=== PATIENT | female | born 1945 | race Two or more races ===

== ENCOUNTER 2017-04-18 00:08 | Emergency (ER) | payer MEDICARE, MEDICAID ==
[~2017-04-18] VITALS: Ht 157.5 cm; Wt 72.1 kg
[2017-04-18 00:08] VITALS: BP 106/64
--- NOTE | 2017-04-18 00:54 | Emergency Room Report ---
History of Present Illness General Chief Complaint: Chest Pain Source: Patient Present Illness HPI [id number] BIBEMS with 1 hour of chest pressure substernal non-radiating. No assoc nausea/vomiting/ sweating or SOB Was given ASA and nitro by EMS Takes daily ASA and Plavix Took Lasix here Had ECHO 2 months ago. States "blood flows backward in my heart." Doesnt know her EF. Previous CABG, stents. Allergies: Coded Allergies: ACETAMINOPHEN (Verified Allergy, Unknown, 04/17/17) MAGNESIUM (Verified Allergy, Unknown, 04/17/17) NSAIDS (NON-STEROIDAL ANTI-INFLAMMA (Verified Allergy, Unknown, 04/17/17) Patient History Past Medical History: HTN, CAD, CHF Past Surgical History: CABG Pertinent Family History: none Social History: Denies: alcohol use, drug use, smoking Now: No Immunizations: UTD Reviewed Nursing Documentation: PMH: Agreed, PSxH: Agreed Nursing Documentation-PMH Past Medical History: No History, Except For Hx Cardiac Problems: Yes - CHF, kidney stones Review of Systems All Other Systems: negative except mentioned in HPI Physical Exam Vital Signs Date Time Temp Pulse Resp B/P Pulse Ox O2 Delivery O2 Flow Rate FiO2 04/17/17 23:52 91 18 106/64 100 Room Air Sp02 EP Interpretation: reviewed, normal General Appearance: normal inspection, well appearing, no apparent distress, alert, GCS 15, non-toxic Head: normocephalic, atraumatic Eyes: bilateral eye EOMI, bilateral eye PERRL ENT: normal ENT inspection Neck: normal inspection, full range of motion, supple, no bony tend Respiratory: normal inspection, lungs clear, normal breath sounds, no respiratory distress, no retraction, no accessory muscle use, no wheezing, speaking full sentences Cardiovascular #1: regular rate, rhythm, no edema Gastrointestinal: normal inspection, normal bowel sounds, non tender, soft, no guarding, no hernia Genitourinary: no CVA tenderness Musculoskeletal: normal inspection, back normal, normal range of motion, Saskia' s Sign negative Neurologic: normal inspection, alert, oriented x3, responsive, lead recreation assistant III-XII nml as tested, motor strength/tone normal, speech normal Psychiatric: normal inspection, judgement/insight normal, mood/affect normal Skin: normal inspection, normal color, no rash Medical Decision Making Diagnostic Impression: Primary Impression: Chest pain Qualified Codes: R07.9 - Chest pain, unspecified ER Course - VSS. Afebrile. - ECG with TWI in anterior leads - no previous to compare - Labs: Patient repeatedly preventing multiple nurses to place tourniquet, attempt IV access, or draw blood for lab testing. Every vein found by nurses is not allowed per patient. - CRX: Cardiomegaly. No chf. No PTX. Sternotomy wires seen Given continued patient disruption of my staff's ability to draw blood for laboratory testing and enable me to evaluate her for risk of ACS including lab testing, administration of IV medication, or possibly admission I have no other choice but to discharge patient home with recommended PMD follwoup. On serial exam, patient's vitals remain stable. She is no acute distress. Given O2 sat 100%, no audible crackels on auscultation of lungs, unlikely to be in acute on chronic CHF. EKG Diagnostic Results Rate: normal, other - 1st degree block ST Segments: other - RBBB. TWI in leads V1-6; Q wave in Lead 3 ASA given to the pt in ED: No Rhythm Strip Diag. Results EP Interpretation: yes Rate: 83 Rhythm: NSR, no PVC's, no ectopy Chest X-Ray Diagnostic Results Chest X-Ray Diagnostic Results : Chest X-Ray Ordered: Yes # of Views/Limited/Complete: 1 View Indication: Chest Pain EP Interpretation: Yes Interpretation: no consolidation, no effusion, no pneumothorax, other - Cardiomegaly. Sternotomy wires Impression: No acute disease Interpreting ER Provider: Electronicaly signed by Dr Maurice Last Vital Signs Date Time Temp Pulse Resp B/P Pulse Ox O2 Delivery O2 Flow Rate FiO2 04/18/17 00:26 91 18 Room Air 04/17/17 23:52 106/64 100 Status: improved Disposition: HOME, SELF-CARE AZUL MAURICE M.D. Apr 18, 2017 00:54
[2017-04-18 02:08] VITALS: BP 107/59
[2017-04-18 02:40] VITALS: BP 107/59
--- NOTE | 2017-04-18 15:04 | Diagnostic Imaging Report ---
Indication: Chest pain Technique: One view of the chest Comparison: none Findings: The heart is borderline enlarged. There is a band of atelectasis or scarring in the left midlung. Lungs and pleural spaces are otherwise clear. There is evidence of prior CABG. Impression: Findings as noted. No acute process
--- NOTE | 2017-04-18 16:41 | Cardiology Report ---
APPROVED REPORT EKG Measurement Heart [id number] Sinus rhythm with 1st degree AV block Possible Left atrial enlargement Right bundle branch block T wave abnormality, consider lateral ischemia Abnormal ECG
== END 2017-04-18 02:40 | disposition home or self-care (01) ==
LOC: EDBD 00:08 → EMR 00:20
DX: R07.89 Other chest pain (principal); I50.9 Heart failure, unspecified; I10 Essential (primary) hypertension; I25.10 Atherosclerotic heart disease of native coronary artery without angina pectoris; Z88.6 Allergy status to analgesic agent; Z95.1 Presence of aortocoronary bypass graft
CPT/HCPCS: 71010; 93005; 99283